=== PATIENT | male | born 1940 | race Caucasian/White ===

== ENCOUNTER 2019-03-21 16:24 | Emergency (ER) | payer MEDICARE, BC ==
[~2019-03-21] VITALS: Ht 180.3 cm; Wt 95.8 kg
[2019-03-21 17:00] LABS: BASOPHILS # (AUTO) 0.01 x10^3/uL (0-0.1); BASOPHILS % (AUTO) 0 % (0-1); EOSINOPHILS # (AUTO) 0.07 x10^3/uL (0-0.4); EOSINOPHILS % (AUTO) 1 % (1-7); LYMPHOCYTES # (AUTO) 0.45 x10^3/uL (1-3.4); LYMPHOCYTES % (AUTO) 7 % (22-44); MD NO; MEAN CORPUSCULAR HGB CONC 32.8 g/dL (33.2-36.2); MEAN CORPUSCULAR VOLUME 94.6 fL (81-97); MEAN PLATELET VOLUME 8.4 fL (7.4-10.4); MONOCYTES # (AUTO) 0.51 x10^3/uL (0.2-0.8); MONOCYTES % (AUTO) 7 % (2-9); NEUTROPHILS # (AUTO) 5.85 x10^3/uL (1.8-6.8); NEUTROPHILS % (AUTO) 85 % (42-75); PLATELET COUNT 209 x10^3/uL (130-400); RED CELL DISTRIBUTION WIDTH 14.4 % (9.4-14.8)
[2019-03-21] MEDS ORDERED: ACETAMINOPHEN 500 MG TABLET PO ONE (17:00)
[2019-03-21 17:02] LABS: RAPID INFLUENZA A Negative (Negative); RAPID INFLUENZA B Negative (Negative)
[2019-03-21] MEDS ORDERED: ACETAMINOPHEN 500 MG TABLET ONE (17:02)
[2019-03-21 17:06] LABS: ALANINE AMINOTRANSFERASE 50 U/L (12-78); ALBUMIN 3.7 g/dL (3.4-5.0); ANION GAP 7 mmol/L (5-15); CHLORIDE 103 mmol/L (98-107); CREATININE 1.32 mg/dL (0.7-1.3)
[2019-03-21 17:09] LABS: ALKALINE PHOSPHATASE 108 U/L (45-117); BILIRUBIN,TOTAL 0.7 mg/dL (0.2-1.0); TOTAL PROTEIN 7.5 g/dL (6.4-8.2)
--- NOTE | 2019-03-21 18:03 | NUR ---
TO RL FROM LOBBY
[2019-03-21] MEDS ORDERED: metformin PO (18:25)
[2019-03-21] MEDS ORDERED: glyburide (18:27)
[2019-03-21] MEDS ORDERED: Metformin PO ×2 (18:27)
[2019-03-21] MEDS ORDERED: SODIUM CHLORIDE FLUSH 10ML SYR IVF ONE (18:30)
[2019-03-21] MEDS ORDERED: CEFTRIAXONE PMX 1GM/50ML 50 ML IVPB ONE (18:30)
--- NOTE | 2019-03-21 19:09 | NUR ---
Provided bedside report to FRANNIE Bourne. All questions answered. FRANNIE Bourne to assume care of pt at this time. NADN. No needs expressed.
--- NOTE | 2019-03-21 19:15 | NUR ---
Received report at bedside, reviewed patient's recent complaint of fevers and malaise. Patient is alert, oriented and answers questions clearly and concisely. Started iv per protocol. urine sent to lab. Will return with antibiotics.
[2019-03-21] MEDS ORDERED: CEFTRIAXONE PMX 1GM/50ML 50 ML ONE (19:21)
[2019-03-21 19:24] LABS: MICROSCOPIC INDICATED
[2019-03-21 19:29] LABS: CULTURE INDICATED? NO
[2019-03-21 19:30] VITALS: BP 138/73
== END 2019-03-21 20:24 | disposition home or self-care (01) ==
LOC: ED 20:00
DX: R50.9 Fever, unspecified (principal); R19.7 Diarrhea, unspecified; M79.10 Myalgia, unspecified site; I10 Essential (primary) hypertension; E11.9 Type 2 diabetes mellitus without complications; Z90.49 Acquired absence of other specified parts of digestive tract
CPT/HCPCS: 36415; 71045; 80053; 81001; 83605; 84145; 85025; 87040; 87400; 96365; 99284; J0696

== ENCOUNTER 2019-03-24 09:55 | Emergency (ER) | payer MEDICARE, BC ==
[~2019-03-24] VITALS: Ht 177.8 cm; Wt 95.3 kg
[~2019-03-24 09:55] MED LIST: Metformin PO; glyburide; metformin PO
[2019-03-24 10:05] VITALS: BP 145/64
--- NOTE | 2019-03-24 11:36 | NUR ---
TASK RN: PT STATES "I FINISHED MY BLOOD WORK. I CAN GO NOW." PT ASYMPTOMATIC. NO C/O PAINS, FEVER OR FEELING ILL. Patient/Caregiver given discharge instructions and they have confirmed that they understand the instructions. Patient ambulatory with steady gait. PT LEFT WITH ALL PERSONAL BELONGINGS.
== END 2019-03-24 11:39 | disposition home or self-care (01) ==
LOC: ED 11:33
DX: R19.7 Diarrhea, unspecified (principal); R05 Cough; R50.9 Fever, unspecified; I10 Essential (primary) hypertension; E11.9 Type 2 diabetes mellitus without complications; Z90.49 Acquired absence of other specified parts of digestive tract
CPT/HCPCS: 36415; 87040; 99283

== ENCOUNTER 2019-12-06 13:53 | Outpatient (CLI) | payer MEDICARE, BC ==
[2019-12-06] MEDS ORDERED: OMNIPAQUE 350 MG/ML, 75ML BOTTLE ONE (16:01)
== END 2019-12-06 23:59 | disposition home or self-care (01) ==
LOC: CFH 13:53
PROVIDERS: ATTEND Internal Medicine
DX: I70.0 Atherosclerosis of aorta (principal); I25.10 Atherosclerotic heart disease of native coronary artery without angina pectoris; M19.012 Primary osteoarthritis, left shoulder; M19.011 Primary osteoarthritis, right shoulder
CPT/HCPCS: 71260; Q9967

== ENCOUNTER → 2020-04-16 | Outpatient (CLI) | payer MEDICARE, BC | END | disposition home or self-care (01) | LOC: CFH 06:43 | PROVIDERS: ATTEND Internal Medicine Cardiovascular Disease | DX: I08.8 Other rheumatic multiple valve diseases (principal); I21.19 ST elevation (STEMI) myocardial infarction involving other coronary artery of inferior wall; I25.9 Chronic ischemic heart disease, unspecified; I25.10 Atherosclerotic heart disease of native coronary artery without angina pectoris | CPT/HCPCS: 78452; 93017; 93306; A9502 ==